=== PATIENT | male | born 1990 | race African-American/Black ===

== ENCOUNTER 2022-08-01 15:55 | Emergency (ER) | payer SELFPAY ==
[~2022-08-01] VITALS: Ht 172.7 cm; Wt 67.0 kg
[2022-08-01] MEDS ORDERED: IBUPROFEN 400MG TABLET PO ONE (19:15)
[2022-08-01] MEDS ORDERED: IBUP-2028 MT (19:57)
[2022-08-01 20:13] VITALS: BP 110/62
== END 2022-08-01 20:17 | disposition home or self-care (01) ==
LOC: ER 15:55
DX: M54.50 Low back pain, unspecified (principal); M25.562 Pain in left knee; V49.49XA Driver injured in collision with other motor vehicles in traffic accident, initial encounter; Y93.89 Activity, other specified; Y92.89 Other specified places as the place of occurrence of the external cause; Y99.8 Other external cause status
CPT/HCPCS: 72100; 73502; 73560; 99284